=== PATIENT | female | born 1990 | race Caucasian/White ===

== ENCOUNTER 2020-04-29 10:06 | Observation (INO) | payer BC, SELFPAY ==
--- NOTE | 2020-04-29 10:06 | OBADM ---
This patient, Bree Bravo, admitted to the OB room OB Post 116 for observation. Patient/family oriented to hospital policies and general routines including ID bracelet, bed and alarms, visiting hours, pain management, procedures, bathroom and other care routines, personal items, smoking policy, room service/diet, and visiting hours. Patient/Family are encouraged to report perceived risks to care and to ask questions if they do not understand what they are told or what they should do.
[2020-04-29 10:15] VITALS: BMI 42.1
[2020-04-29 10:28] VITALS: BP 120/71; PULSE 82
--- NOTE | 2020-04-29 10:40 | PC.NURSE ---
Called Dr. Hylton with pt status. Informed of pt complaining of left eye pain and headache on left side. Pt states it is increased when lying flat. BP results given. Orders received.
--- NOTE | 2020-04-29 11:55 | PC.NURSE ---
Pt states that her headache is better and is requesting to go home. May D/C home. Dr. Hylton with call prescription to pharmacy.
--- NOTE | 2020-05-03 02:13 | PM.OBTRLD ---
OB - Triage/Final Diagnosis Final Diagnosis (1) Headache: Code(s): R51 - Headache Status: Acute
== END 2020-04-29 12:15 | disposition home or self-care (01) ==
PROVIDERS: Admitting Provider Obstetrics & Gynecology; PCP Family Medicine; Visit Provider Obstetrics & Gynecology
DX: O26.892 Other specified pregnancy related conditions, second trimester (principal); R51 Headache; Z3A.18 18 weeks gestation of pregnancy
CPT/HCPCS: A9270; G0378; G0379

== ENCOUNTER 2020-05-27 12:00 | Observation (INO) | payer BC, SELFPAY ==
--- NOTE | ~2020-05-27 | US_ITS ---
EXAMINATION: US renal BI DATE: 05/27/2020 15:57 INDICATION: Right-sided abdominal pain TECHNIQUE: Multiple grayscale and Doppler ultrasound images of the kidneys were obtained. COMPARISON: None. FINDINGS: The right kidney measures 14.3 x 4.8 x 5.9 cm. The left kidney measures 12.9 x 5.6 x 6.0 cm . The kidneys demonstrate normal parenchymal echogenicity. There is no hydronephrosis. The bladder is normal. IMPRESSION: 1. Normal kidneys without hydronephrosis. Reviewed, dictated and finalized at location A.
[2020-05-27 12:00] VITALS: BMI 41.6
[2020-05-27 12:23] VITALS: BP 95/48; PULSE 83
[2020-05-27 12:31] VITALS: BP 110/97; PULSE 79
[2020-05-27 12:46] VITALS: BP 108/67; PULSE 79
[2020-05-27 13:01] VITALS: BP 107/73; PULSE 77
[2020-05-27 13:16] VITALS: BP 111/68; PULSE 73
[2020-05-27] MEDS: DEXTROSE 5%/0.45% SOD CHL 1,000 ML 500 ML (13:40)
[2020-05-27] MEDS: METOCLOPRAMIDE HCL INJ 10 MG/2 ML VIAL 5 MG IV PUSH (13:42)
[2020-05-27 13:46] LABS: Basophils Percent Auto 0.2 % (0.2-1.2); Eosinophils Absolute Auto 0.1 K/mm3 (0-0.3); Eosinophils Percent Auto 0.9 % (0-4.4); Hematocrit 40.8 % (37.0-47.0); Hemoglobin 13.6 g/dL (12.0-15.0); Immature Granulocyte Absolute 0.09 K/mm3 (0.00-0.031); Immature Granulocyte Percent A 0.7 % (0-0.5); Lymphocytes Absolute Auto 2.01 K/mm3 (0.9-3.2); Lymphocytes Percent Auto 14.7 % (18.3-44.2); Mean Corpuscular HGB Conc 33.3 g/dl (32-36); Mean Corpuscular Hemoglobin 29.4 pg (26-34); Mean Corpuscular Volume 88.1 fl (80-100); Mean Platelet Volume 10.5 fl (7.4-10.4); Monocytes Absolute Auto 0.9 K/mm3 (0.1-0.6); Monocytes Percent Auto 6.7 % (2.6-8.5); Neutrophils Absolute Auto 10.5 K/mm3 (1.3-6.7); Neutrophils Percent Auto 76.8 % (45.5-73.1); Platelet Count Result 252 k/mm3 (150-375); Red Blood Count 4.63 M/mm3 (4.2-5.4); Red Cell Distribution Width 13.9 % (11.5-14.5); White Blood Count 13.7 K/mm3 (4.5-10.0)
[2020-05-27 13:49] LABS: Add Urine Microscopic? YES; Appearance Urine Clear (Clear); Bacteria Urine 1+ /hpf; Bilirubin Urine Negative (Negative); Blood Urine Negative (Negative); Color Urine Yellow (Yellow); Glucose Urine UA Negative (Negative); Ketones Urine Trace mg/dL (Negative); Leukocyte Esterase Ur Trace LEU/UL (Negative); Nitrate Urine Negative (Negative); Protein Urine Negative (Negative); RBC Urine 0-2 /hpf (0-2); Specific Grav Ur 1.012 (1.001-1.035); Squamous Epithelial Cell Urine Few /hpf (Few); Transitional Epi Cells Urine Rare /hpf (None Seen); Urobilinogen Urine Negative mg/dL (<2.0)
[2020-05-27 13:58] LABS: Alanine Aminotransferase 11 U/L (4-35); Albumin Level 3.9 g/dL (3.5-5.1); Alkaline Phosphatase 92 U/L (38-126); Anion Gap 7 mmol/L (8-16); Aspartate Amino Transferase 17 U/L (14-36); Bilirubin,Total 0.3 mg/dL (0.2-1.3); Blood Urea Nitrogen 5 mg/dL (7-17); Calcium 9.4 mg/dL (8.4-10.2); Carbon Dioxide 22 mmol/L (22-30); Chloride 109 mmol/L (98-107); Estimated Glomerular Filt Rate > 60; Glucose 74 mg/dL (65-105); Potassium 3.7 mmol/L (3.4-5.0); Sodium 138 mmol/L (137-145)
[2020-05-27] MEDS: fentaNYL CITRATE INJ (*CRX) 100 MCG/2 ML VIAL 50 MCG IV PUSH (14:44)
--- NOTE | 2020-05-27 15:02 | PC.NURSE ---
1445--US at bedside
--- NOTE | 2020-05-27 16:22 | P.HP_ITS ---
Obstetrics - Admit Note Admission Note: IUP at 22 weeks. Had vomiting today, then some sharp, right-sided flank pain. No fevers. No urinary symptoms. History of kidney stones in the past. Good movement. No vaginal bleeding. Feels a little better now after 1 liter of IV fluids. AVSS ABD soft, nontender, gravid. FHR noted. EXT nontender BACK: No CVA tenderness WBC 13.7. CMP unremarkable. UA negative. Ultrasound: no hydronephrosis, kidneys normal bilaterally. A: IUP at 22 weeks. Likely musculoskeletal pain after vomiting. P: Home to apply heat, try [place] 5/325 1 po q 4 hours prn pain, and cover empirically with Keflex 500 mg po q 8 hours x 5 days. F/u as scheduled.
--- NOTE | 2020-05-27 16:53 | PC.NURSE ---
1603--Dr. Hylton at bedside to discuss plan of care. DC orders given
--- NOTE | 2020-06-19 00:03 | P.PNOB_ITS ---
OB - Triage/Final Diagnosis Evaluation Laboratory results: Laboratory Tests 05/27/20 05/27/20 05/27/20 13:37 13:37 13:37 WBC 13.7 H RBC 4.63 Hgb 13.6 Hct 40.8 MCV 88.1 MCH 29.4 MCHC 33.3 RDW 13.9 Plt Count 252 MPV 10.5 H Immature Gran % (Auto) 0.7 H Neut % (Auto) 76.8 H Lymph % (Auto) 14.7 L [place] % (Auto) 6.7 Eos % (Auto) 0.9 Baso % (Auto) 0.2 Lymph # (Auto) 2.01 [place] # (Auto) 0.9 H Eos # (Auto) 0.1 Baso # (Auto) 0.0 Abs Immat Gran (auto) 0.09 H Absolute Neuts (auto) 10.5 H Absolute Nucleated RBC 0.0 Nucleated RBC % 0.0 Sodium 138 Potassium 3.7 Chloride 109 H Carbon Dioxide 22 Anion Gap 7 L BUN 5 L Creatinine 0.50 L Estim Creat Clear Calc Not Reportable Estimated GFR > 60 Glucose 74 Calcium 9.4 Total Bilirubin 0.3 AST 17 ALT 11 Alkaline Phosphatase 92 Total Protein 7.0 Albumin 3.9 Urine Color Yellow Urine Appearance Clear Urine pH 6.0 Ur Specific [place] 1.012 Urine Protein Negative Urine Glucose (UA) Negative Urine Ketones Trace Ur Blood (Man) Negative Urine Nitrate Negative Urine Bilirubin Negative Urine Urobilinogen Negative Leukocyte Esterase Rfl Trace H Urine RBC 0-2 Urine WBC 4-6 H Ur Squamous Epith Cells Few Ur Transition Epith Cell Rare Urine Bacteria 1+ H Final Diagnosis (1) Musculoskeletal pain: Code(s): M79.18 - Myalgia, other site Status: Acute
== END 2020-05-27 16:27 | disposition home or self-care (01) ==
PROVIDERS: Admitting Provider Obstetrics & Gynecology; PCP Family Medicine; Visit Provider Obstetrics & Gynecology
DX: O26.892 Other specified pregnancy related conditions, second trimester (principal); R10.9 Unspecified abdominal pain; O21.8 Other vomiting complicating pregnancy; Z3A.22 22 weeks gestation of pregnancy
CPT/HCPCS: 36415; 76775; 80053; 81001; 85025; 87086; 87088; 96374; 96375; G0378; G0379; J2765; J3010

== ENCOUNTER 2020-08-24 00:41 | Observation (INO) | payer BC, SELFPAY ==
[2020-08-24] VITALS (8 sets, daily range): BP systolic 102–123; BP diastolic 59–71; PULSE 73–96; TEMP 36.3–36.8; BMI 41.3
--- NOTE | 2020-08-24 00:50 | OBADM ---
This patient, Bree Bravo, admitted to the OB room Labor/Delivery/Recovery 105 for observation. Patient/family oriented to hospital policies and general routines including ID bracelet, bed and alarms, visiting hours, pain management, procedures, bathroom and other care routines, personal items, smoking policy, room service/diet, and visiting hours. Patient/Family are encouraged to report perceived risks to care and to ask questions if they do not understand what they are told or what they should do.
--- NOTE | 2020-08-24 01:00 | PC.NURSE ---
Pt arrives holding forehead and bending over. PT states she was watching TV this evening approx 2-3 hours ago when she developed severe pain in low back and pressure in pelvic area. She then developed a severe headache which she rates as 6. Pt is holding forehead on arrival. Pt is alert oriented, speech clear. When asked pt states she has never had headache like the one she is having currently. States she had sinus surgery 2 years ago for same type of headaches.
[2020-08-24 01:33] LABS: Add Urine Microscopic? YES; Appearance Urine Clear (Clear); Bacteria Urine Trace /hpf; Bilirubin Urine Negative (Negative); Blood Urine Negative (Negative); Color Urine Straw (Yellow); Glucose Urine UA Negative (Negative); Ketones Urine Negative (Negative); Leukocyte Esterase Ur Trace LEU/UL (NEGATIVE); Mucus Urine Rare /lpf; Nitrate Urine Negative (Negative); Protein Urine Negative (Negative); RBC Urine 0-2 /hpf (0-2); Squamous Epithelial Cell Urine Occasional /hpf (Few); Urobilinogen Urine Negative mg/dL (<2.0); WBC Urine 0-3 /hpf (0-3)
--- NOTE | 2020-08-24 01:45 | PC.NURSE ---
Dr. Jose Ortiz notified of pt admission and assessment. Order for MRI of brain Neurology consult, covid screen and drug screen. Pt denies any covid symptoms except headache. Pt states she feel covid screen is good idea.
[2020-08-24] MEDS: HYDROcodone/acetaminophen (*CRX) 10-325 MG TABLET 1 TAB PO (02:19)
[2020-08-24 02:54] LABS: Amphetamine Screen Urine Negative (Negative); Barbiturate Screen Urine Negative (Negative); Benzodiazepines Screen Urine Negative (Negative); Cannabinoid Screen Urine Negative (Negative); Cocaine Screen Urine Negative (Negative); Methadone Screen Urine Negative (Negative); Opiate Screen Urine Negative (Negative); Phencyclidine Screen Urine Negative (Negative)
--- NOTE | 2020-08-24 04:30 | PC.NURSE ---
0155 In review of pt previous record. Pt noted to have previous RX for pain medication over past 6 months. Pt states some for back pain but also may have been for headache. Pt states she may have had headache past 2 years but none like the one she is having currently; Pt states she may have stress headache. Advised pt MD would like to do MRI and neurology consult. Pt states she will leave against medical advise and she does not want to stay here. Pt states she should not have come. Pt to have Covid screen per MD order.
--- NOTE | 2020-08-24 04:42 | PC.NURSE ---
Addendum entered by Arthur Aguilar RN 08/24/20 05:54: NOTE SHOULD BE 0145 Original Note: Dr. Jose Ortiz notified of pt admission and assessment. Order for MRI of brain Neurology consult, covid screen and drug screen. Pt denies any covid symptoms except headache. Pt states she feel covid screen is good idea.
--- NOTE | 2020-08-24 05:52 | PC.NURSE ---
PT Sleeping. Left undisturbed.
--- NOTE | 2020-08-24 06:27 | PC.NURSE ---
Dr. Jose Ortiz here. Advised of pt desire to leave and that pt does not want MRI or neuro consult. He would like pt to see Dr. Hylton. Pt advised and agreeable.
--- NOTE | 2020-08-24 09:02 | P.HP_ITS ---
Obstetrics - Admit Note Admission Note: 30 y/o at 34 weeks here with a headache and low back pain. Some pelvic pressure. No bleeding. No leakage of fluid. Headache has resolved with a dose of [place]. No visual change. No swelling. AVSS NST reactive TOCO: no contractions BACK: No CVA tenderness ABD soft, nontender, gravid, vertex EXT nontender Cervix closed NEURO: DTR 2/4, symmetric. CN II-XII intact grossly. A: IUP at 34 weeks with headache, improving. Low back pain. P: Home with T#3 for headache. Heat to back. F/U as scheduled.
[2020-08-24 16:54] LABS: SARS-CoV-2 RNA PCR Negative
== END 2020-08-24 09:06 | disposition home or self-care (01) ==
PROVIDERS: Admitting Provider Obstetrics & Gynecology; PCP Family Medicine; Visit Provider Obstetrics & Gynecology
DX: O99.891 Other specified diseases and conditions complicating pregnancy (principal); R51.9 Headache, unspecified; M54.9 Dorsalgia, unspecified; Z3A.34 34 weeks gestation of pregnancy; Z20.828 Contact with and (suspected) exposure to other viral communicable diseases
CPT/HCPCS: 80307; 81001; 87086; 87635; A9270; C9803; G0378; G0379; U0003

== ENCOUNTER 2020-09-22 04:57 | Inpatient (IN) | payer BC, SELFPAY ==
[2020-09-22] VITALS (133 sets, daily range): BP systolic 59–171; BP diastolic 28–136; PULSE 64–190; RESP 16; TEMP 36.2–36.9; O2SAT 86–100; BMI 41.3
--- NOTE | 2020-09-22 05:33 | LDADM ---
This patient, Bree Bravo, was admitted to Labor/Delivery/Recovery 106 on 09/22/20 at 04:57. Plans for labor, pain management and were discussed with patient. Patient/family oriented to hospital policies and general routines including ID bracelet, bed and alarms, visiting hours, pain management, procedures, bathroom and other care routines, personal items, smoking policy, room service/diet and guest tray routines, security routines, and visiting hours. Patient/Family are encouraged to report perceived risks to care and to ask questions if they do not understand what they are told or what they should do. See OBIX for further documentation.
[2020-09-22 05:37] LABS: Basophils Percent Auto 0.2 % (0.2-1.2); Eosinophils Absolute Auto 0.1 K/mm3 (0-0.3); Eosinophils Percent Auto 0.7 % (0-4.4); Hematocrit 39.3 % (37.0-47.0); Hemoglobin 12.8 g/dL (12.0-15.0); Immature Granulocyte Absolute 0.08 K/mm3 (0.00-0.031); Immature Granulocyte Percent A 0.6 % (0-0.5); Lymphocytes Absolute Auto 2.04 K/mm3 (0.9-3.2); Mean Corpuscular HGB Conc 32.6 g/dl (32-36); Mean Corpuscular Hemoglobin 27.9 pg (26-34); Mean Corpuscular Volume 85.8 fl (80-100); Mean Platelet Volume 10.8 fl (7.4-10.4); Monocytes Percent Auto 8.1 % (2.6-8.5); Neutrophils Absolute Auto 9.5 K/mm3 (1.3-6.7); Neutrophils Percent Auto 74.4 % (45.5-73.1); Platelet Count Result 236 k/mm3 (150-375); Red Blood Count 4.58 M/mm3 (4.2-5.4); Red Cell Distribution Width 14.2 % (11.5-14.5); White Blood Count 12.8 K/mm3 (4.5-10.0)
[2020-09-22] MEDS: OXYTOCIN 30 UNITS/NS 500 ML 30 UNITS/500 ML BAG IV CONT (05:47)
[2020-09-22] MEDS: LACTATED RINGERS 1,000 ML 125 ML IV CONT ×2 (05:48→08:21)
--- NOTE | 2020-09-22 06:46 | WPDANESEPP ---
Anes - Eval Pre Procedure Procedure: labor epidural Date/Time: 09/22/20 06:46 Surgeon: samantha Preop Diagnosis: pain during labor Pre Op Diagnosis: Induction of Labor Patient Data Age: 30 Gender: F Height: Weight: Last Vital Signs Pulse 89 09/22/20 06:16 BP 132/72 09/22/20 06:16 Allergies Allergy/AdvReac Type Severity Reaction Status Date / Time ondansetron [From Zofran] Allergy Unknown Shakiness Verified 08/26/20 13:23 Home Medications Medication Instructions Recorded Confirmed Type PNV no.[id number] acid 1 tablet PO DAILY 08/24/20 09/22/20 History acetaminophen-codeine 1 - 2 tablet PO Q6H PRN #30 tablet 08/24/20 09/22/20 Rx Laboratory Tests 09/22/20 09/22/20 05:28 05:28 WBC 12.8 K/mm3 H K/mm3 (4.5-10.0) RBC 4.58 M/mm3 M/mm3 (4.2-5.4) Hgb 12.8 g/dL g/dL (12.0-15.0) Hct 39.3 % % (37.0-47.0) MCV 85.8 fl fl (80-100) MCH 27.9 pg pg (26-34) MCHC 32.6 g/dl g/dl (32-36) RDW 14.2 % % (11.5-14.5) Plt Count 236 k/mm3 k/mm3 (150-375) MPV 10.8 fl H fl (7.4-10.4) Immature Gran % (Auto) 0.6 % H % (0-0.5) Neut % (Auto) 74.4 % H % (45.5-73.1) Lymph % (Auto) 16.0 % L % (18.3-44.2) [place] % (Auto) 8.1 % % (2.6-8.5) Eos % (Auto) 0.7 % % (0-4.4) Baso % (Auto) 0.2 % % (0.2-1.2) Lymph # (Auto) 2.04 K/mm3 K/mm3 (0.9-3.2) [place] # (Auto) 1.0 K/mm3 H K/mm3 (0.1-0.6) Eos # (Auto) 0.1 K/mm3 K/mm3 (0-0.3) Baso # (Auto) 0.0 K/mm3 K/mm3 (0.0-0.1) Abs Immat Gran (auto) 0.08 K/mm3 H K/mm3 (0.00-0.031) Absolute Neuts (auto) 9.5 K/mm3 H K/mm3 (1.3-6.7) Absolute Nucleated RBC 0.0 K/mm3 K/mm3 (0.0-0.012) Nucleated RBC % 0.0 % % (0.0-0.2) RPR Pending Patient hx anesthesia problems: none Family hx anesthesia problems: none PMFSH Past Medical History Medical History (Updated 06/19/20 @ 00:04 by Charles Hylton MD) Anxiety Asthma Cervical cancer GERD (gastroesophageal reflux disease) Inguinal hernia Kidney stones Miscarriage PCOS (polycystic ovarian syndrome) UTI (urinary tract infection) Surgical History Surgical History (System 03/31/20 @ 13:01 by María Rg) History of cholecystectomy History of inguinal hernia repair History of loop electrical excision procedure (LEEP) History of sinus surgery Hx of dilation and curettage Family History Family History (Updated 08/26/20 @ 13:24 by Jos Hodge RN) Grandparent Diabetes mellitus Cancer Asthma Social History Social History (System 03/31/20 @ 13:01 by María Rg) Smoking status: Never smoker Second hand tobacco smoke exposure: No Alcohol intake: never Substance use: never Spiritual care concerns: No Exam Day of Procedure 09/22/20 06:46
--- NOTE | 2020-09-22 08:45 | WPDOBADMIT ---
Obstetrics - Admit Note Admission Note: record reviewed. Additions to the history and/or subsequent changes in the physical findings follow. 30 y/o at 39 3/7 weeks here for induction of labor. GBS neg. AVSS NST reactive TOCO: contractions every 4-6 min ABD soft, nontender, gravid, vertex EXT nontender Cervix 3/50/-2. AROM with clear fluid. Vertex. A: IUP at term with favorable cervix, desiring induction of labor. P: Oxytocin. Anticipate .
[2020-09-22] MEDS: ePHEDrine sulfate INJ 50 MG/ML AMPUL IV PUSH (09:20)
[2020-09-22] MEDS: PHENYLEPHRINE 1,000 MCG/10 ML SYRINGE 100 MCG IV PUSH (09:20)
[2020-09-22 11:34] LABS: Rapid Plasma Reagin Non-Reactive (NonReactive)
--- NOTE | 2020-09-22 13:27 | PM.OBPNLAB ---
Pain Control Date/time seen: 09/22/20 13:27 Comments: Comfortable with epidural. Pelvic Exam Dilation (cm): 7 Effacement (%): 100 station: -1 Contractions Contraction frequency: 4 Contraction pattern: Regular Status Comments: NST reactive Assessment and Plan Comments: Continue labor.
--- NOTE | 2020-09-22 15:19 | P.PCNOB_ITS ---
OB - Delivery Note Procedure Delivery date: 09/22/20 Procedure: Induction of labor with Induction method: AROM and per pitocin protocol Delivery monitor: external FHT, external uterine and internal uterine Route of delivery: Laceration Description: Perineal - 2nd Degree Delivery repair: vicryl (3-0) Specimen: Yes (cord blood) Quantitative Blood Loss (ml): 145 Anesthesia type: Epidural Disposition: PACU Complications: None Narrative: 30 y/o at 39 3/7 weeks gestation who presented to the hospital for induction of labor. Oxytocin was administered intravenously. Amniotomy was performed with return of clear fluid. She received an epidural for pain control. Her labor progressed and her cervix dilated completely. She pushed with good effort and delivered the 's head to the perineum, followed by the body. The nose and mouth were bulb suctioned. After a delay, the cord was clamped and cut. The infant was handed off the field. Cord blood was collected. The placenta delivered spontaneously and was grossly normal in appearance. The usual 3 vessel cord was noted. A second degree midline perineal laceration was sustained. This was reapproximated using 3 0 Vicryl in the usual layered fashion. A single, figure of eight suture was placed to reapproximate a left sided periurethral laceration. Excellent hemostasis resulted as did excellent reapproximation of the normal anatomy. Needle and instrument counts were correct. The patient was taken to recovery room in stable condition. The infant went to the nursery in stable condition. I was present and scrubbed for the entire delivery. [place] Baby Date of : 09/22/20 Time of : 14:59 Weeks of gestation at delivery: 39 gender: Male Weight (pounds): 7 Weight (ounces): 11 presentation: vertex position: Right Occiput Anterior Placenta delivery description: Spontaneous cord vessel description: 3 Vessels and Delayed Cord Clamping score one minute: 8 score five minutes: 9
[2020-09-22] MEDS: OXYTOCIN 30 UNITS/NS 500 ML 30 UNITS/500 ML BAG 125 UNITS IV CONT (15:27)
--- NOTE | 2020-09-22 17:50 | OBPPTRN ---
1725 Patient transferred to post room #286 via W/C. Support person present. Oriented to unit, room, information board, rooming in, admission packet and security measures. Patient verbalizes understanding.
[2020-09-22] MEDS: DOCUSATE SODIUM 100 MG CAPSULE PO (18:50)
[2020-09-22] MEDS: IBUPROFEN 600 MG TABLET PO (18:50)
[2020-09-22] MEDS: ACETAMINOPHEN 325 MG TABLET 650 MG PO (21:10)
[2020-09-23] VITALS (12 sets, daily range): BP systolic 111–136; BP diastolic 63–94; PULSE 58–84; RESP 12–24; TEMP 36.2–36.6; O2SAT 95–100
[2020-09-23] MEDS: IBUPROFEN 600 MG TABLET PO ×2 (05:04→10:41)
[2020-09-23 05:56] LABS: Hematocrit 36.9 % (37.0-47.0); Hemoglobin 12.2 g/dL (12.0-15.0)
--- NOTE | 2020-09-23 08:05 | PC.NURSE ---
Patient was given the opportunity to view the discharge video Mother & Baby Care, The First Two Weeks and to ask questions. Patient declined viewing the video and has been given the mother/baby guide for home reference.
[2020-09-23] MEDS: ACETAMINOPHEN 325 MG TABLET 650 MG PO (08:07)
--- NOTE | 2020-09-23 08:35 | PC.NURSE ---
0815 Breast feeding note: visited with mother. Baby ready to breast feed. Nurse encouraged mother to get skin to skin for feedings. mother trying a modified cradle position. She allowed nurse to instruct and assist her in cross-cradle position. Reviewed positioning, alignment, use of c-hold, and nose to nipple latch on technique. Baby awake and eager. Several attempts required because mother has a larger nipple,but baby able to latch with apparent deep latch and demonstrated vigorous, rhythmic sucking, maintaining his latch; nurse adjusted his lower lip to more flanged position and taught FOB how to do the same if needed; baby required a little stimulation to more vigorous sucking, but was doing well at the breast. Mother has a hx of PCOS, and reports lower milk production with her first baby. This time, she chooses to breast feed each feeding, and then bottle feed infant, and we'll see what happens . She does not want to pump as last time it was too stressful . Nurse agreed with her plan. Baby taking about 20cc formula at feedings; parents instructed that when they go home, baby can have amount he wants, and that he will gradually increase his formula intake. Parents voiced understanding.
--- NOTE | 2020-09-23 08:44 | WPDANLDPN2 ---
Anes-Prog Note L&D Date/Time: 09/23/20 08:44 Comfortable throughout: labor and delivery Neuraxial method: epidural Epidural/Spinal procedure site: clean & non-tender Neuro status: Neuro function grossly intact. Cardiovascular status: normal Respiratory status: normal Airway patency: baseline Mental status: baseline Post-Op hydration status: normal Vital Signs: Last Vital Signs Temp 36.5 C 09/23/20 07:45 Pulse 80 09/23/20 07:45 Resp 16 09/23/20 07:45 BP 111/63 09/23/20 07:45 Pulse Ox 100 09/23/20 07:45 Pain score (VAS): 0 I/O: Intake & Output 09/22/20 09/23/20 09/23/20 23:59 07:59 15:59 Output Total 85 Balance -85 Post-procedural complaints: none Patient feedback: Patient satisfied with anesthetic care.
--- NOTE | 2020-09-23 11:40 | PC.NURSE ---
Pt to pre-op per bed for tubal ligation.
--- NOTE | 2020-09-23 11:54 | WPDANESEPPF ---
Anes - Initial Pre Proc Eval Procedure: Operation Date: 09/23/20 13:00 Proposed Procedures p Post- Bilateral Tubal Ligation With Fallopina Rings - Charles Hylton MD Date/Time: 09/23/20 11:54 Surgeon: Charles Hylton MD Pre Op Diagnosis: Induction of Labor Patient Data Age: 30 Gender: F Height: 1.75 m Weight: 127 kg Last Vital Signs Temp 36.5 C 09/23/20 07:45 Pulse 80 09/23/20 07:45 Resp 16 09/23/20 07:45 BP 111/63 09/23/20 07:45 Pulse Ox 100 09/23/20 07:45 Allergies Allergy/AdvReac Type Severity Reaction Status Date / Time ondansetron [From Zofran] Allergy Unknown Shakiness Verified 08/26/20 13:23 Home Medications Medication Instructions Recorded Confirmed Type PNV no.06-zfxj-hjcjw acid 1 tablet PO DAILY 08/24/20 09/22/20 History acetaminophen-codeine 1 - 2 tablet PO Q6H PRN #30 tablet 08/24/20 09/22/20 Rx Laboratory Tests 09/23/20 05:13 Hgb 12.2 g/dL g/dL (12.0-15.0) Hct 36.9 % L % (37.0-47.0) Patient hx anesthesia problems: none Family hx anesthesia problems: none PMFSH Past Medical History Medical History (Updated 06/19/20 @ 00:04 by Charles Hylton MD) Anxiety Asthma Cervical cancer GERD (gastroesophageal reflux disease) Inguinal hernia Kidney stones Miscarriage PCOS (polycystic ovarian syndrome) UTI (urinary tract infection) Surgical History Surgical History (System 03/31/20 @ 13:01 by María Rg) History of cholecystectomy History of inguinal hernia repair History of loop electrical excision procedure (LEEP) History of sinus surgery Hx of dilation and curettage Family History Family History (Updated 08/26/20 @ 13:24 by Jos Hodge RN) Grandparent Diabetes mellitus Cancer Asthma Social History Social History (System 03/31/20 @ 13:01 by María Rg) Smoking status: Never smoker Second hand tobacco smoke exposure: No Alcohol intake: never Substance use: never Spiritual care concerns: No Anes - Eval Final PreProcedure Day of Procedure 09/23/20 11:54 Patient weight: morbidly obese Heart: regular rate and rhythm Lungs: clear to auscultation and normal air movement Airway: Mallampati scale class II Neurological: alert and oriented Last oral intake: >/= 8 hours ASA classification: III Emergent: no Anesthetic plan: proceed Anesthesia type and monitoring: regional epidural Informed Consent: The patient's anesthetic plan and its attendant risks and benefits were discussed with the patient/family/POA. Questions were solicited and answers provided to the satisfaction of the patient/family/POA.
[2020-09-23] MEDS: LACTATED RINGERS 1,000 ML 30 ML IV CONT ×2 (11:59→14:34)
--- NOTE | 2020-09-23 12:25 | PM.OBPNVD ---
OB - PN: Subj Subjective Date/time seen: Pain OK. Still would like tubal ligation. Narrative: Pain OK. OB - PN: Obj Data Labs CBC & Chem 7: 09/23/20 05:13 Labs: Laboratory Results - last 24 hr 09/23/20 05:13 Hgb 12.2 Hct 36.9 L OB - PN A/P Plan Comments: A: PPD#1, doing well. Still would like bilateral tubal ligation. P: She understands there are temporary methods of contraception available to her. She understands that there are nonsurgical options as well as surgical options. She understands that tubal ligation will render her permanently sterile. She understands that there is a failure rate associated with tubal ligation, as well as an inherent ectopic gestation risk. Furthermore, she understands risks of surgery to include risks of anesthesia, risks of pain, infection, bleeding, blood products, thromboembolic phenomena and damage to adjacent structures such as bowel, bladder, ureters, blood vessels and nerves. She understands all these risks and elects to proceed with surgery. She has received the ACOG pamphlet on surgical sterilization. Exam Psych: Other: AVSS ABD soft, nontender, fundus firm EXT nontender
--- NOTE | 2020-09-23 12:28 | WPDHPUPDATE1 ---
History and Physical Update Update Date/Time: 09/23/20 12:28 History and Physical has been reviewed, including an updated exam of the patient. There are NO changes in the patient's condition. Risks, benefits, and alternatives have been discussed and questions answered. Patient agrees to proceed with procedure.
--- NOTE | 2020-09-23 13:09 | PM.IMHP ---
H&P: HPI History of Present Illness Date/Time: 09/23/20 13:09 Chief Complaint: Tubal ligation Narrative: 30 y/o who had a vaginal delivery of a boy yesterday. She desires permanent contraception with tubal ligation. Review of Systems Review of Systems: All systems reviewed & are unremarkable except as noted in HPI and below PMFSH Past Medical History Medical History Anxiety Asthma Cervical dysplasia GERD (gastroesophageal reflux disease) Inguinal hernia Kidney stones Miscarriage PCOS (polycystic ovarian syndrome) UTI (urinary tract infection) Surgical History Surgical History History of cholecystectomy History of inguinal hernia repair History of loop electrical excision procedure (LEEP) History of sinus surgery Hx of dilation and curettage Family History Family History Grandparent Diabetes mellitus Cancer Asthma Social History Social History Smoking status: Never smoker Second hand tobacco smoke exposure: No Alcohol intake: never Substance use: never Spiritual care concerns: No Meds Home Medications and Allergies Home Medications Medication Instructions Recorded Confirmed Type PNV no.[id number]-[id number] acid 1 tablet PO DAILY 08/24/20 09/22/20 History acetaminophen-codeine 1 - 2 tablet PO Q6H PRN #30 tablet 08/24/20 09/22/20 Rx Allergies Allergy/AdvReac Type Severity Reaction Status Date / Time ondansetron [From Zofran] Allergy Unknown Shakiness Verified 08/26/20 13:23 Vital Signs Vital Signs - 24 hr 09/22/20 13:12 09/22/20 13:16 09/22/20 13:17 Temperature Pulse Rate 88 Respiratory Rate Blood Pressure 122/62 Pulse Oximetry 100 90 09/22/20 13:19 09/22/20 13:20 09/22/20 13:24 Temperature Pulse Rate Respiratory Rate Blood Pressure Pulse Oximetry 96 100 100 09/22/20 13:29 09/22/20 13:30 09/22/20 13:31 Temperature 36.4 C Pulse Rate 74 Respiratory Rate Blood Pressure 110/57 L Pulse Oximetry 100 09/22/20 13:34 09/22/20 13:39 09/22/20 13:44 Temperature Pulse Rate Respiratory Rate Blood Pressure Pulse Oximetry 100 100 100 09/22/20 13:46 09/22/20 13:49 09/22/20 13:54 Temperature Pulse Rate 70 Respiratory Rate Blood Pressure 121/60 Pulse Oximetry 100 100 09/22/20 13:59 09/22/20 14:01 09/22/20 14:04 Temperature Pulse Rate 92 Respiratory Rate Blood Pressure 96/85 L Pulse Oximetry 100 100 09/22/20 14:09 09/22/20 14:14 09/22/20 14:17 Temperature Pulse Rate 90 Respiratory Rate Blood Pressure 105/45 L Pulse Oximetry 100 100 09/22/20 14:19 09/22/20 14:24 09/22/20 14:29 Temperature Pulse Rate Respiratory Rate Blood Pressure Pulse Oximetry 100 100 100 09/22/20 14:31 09/22/20 14:34 09/22/20 14:39 Temperature Pulse Rate 75 Respiratory Rate Blood Pressure 71/49 L Pulse Oximetry 100 100 09/22/20 14:44 09/22/20 14:45 09/22/20 14:46 Temperature Pulse Rate 78 Respiratory Rate Blood Pressure 106/55 L Pulse Oximetry 100 100 09/22/20 14:50 09/22/20 14:55 09/22/20 15:01 Temperature Pulse Rate 94 Respiratory Rate Blood Pressure 122/48 L Pulse Oximetry 100 100 09/22/20 15:16 09/22/20 15:46 09/22/20 16:01 Temperature Pulse Rate 82 80 76 Respiratory Rate Blood Pressure 90/46 L 112/55 L 114/65 Pulse Oximetry 09/22/20 16:16 09/22/20 16:31 09/22/20 16:46 Temperature Pulse Rate 85 83 80 Respiratory Rate Blood Pressure 128/72 123/78 132/63 Pulse Oximetry 09/22/20 17:01 09/22/20 20:10 09/23/20 07:45 Temperature 36.6 C 36.5 C Pulse Rate 69 80 80 Respiratory Rate 16 16 Blood Pressure 120/64 130/67 111/63 Pulse Oximetry 100 100 09/23/20 11:
--- NOTE | 2020-09-23 13:16 | PM.OBDSVD ---
DS: Admitting Diagnosis Admitting Diagnosis Admitting Diagnosis: IUP at 39 3/7 weeks Favorable cervix Desired sterility DS: Discharge Diagnosis Discharge Diagnosis (1) (normal spontaneous vaginal delivery): Code(s): O80 - Encounter for full-term uncomplicated delivery Status: Acute (2) Unwanted fertility: Code(s): Z30.09 - Encounter for other general counseling and advice on contraception Status: Acute OB - DS: Summary OB Procedures : None OB Procedures Intrapartum: Spontaneous Vag Delivery and Tubal ligation OB Procedures: : None Peripartum Data Procedures: Procedures Operation Date: 09/23/20 13:00 <No data on this case meets the specified criteria> Induction of labor with bilateral tubal ligation DS: Data Data Completed and Pending Labs on day of discharge: Labs from last 24 hours 09/23/20 05:13 Hgb 12.2 Hct 36.9 L Discharge Plan Discharge Attending physician on discharge: Charles Hylton Discharging Clinician: Charles Hylton Patient Disposition: Home, Self-Care Activity: may shower, may drive after 2 weeks and pelvic rest Diet: regular Wound Care Instructions: incision open to air Discharge Instructions: Call or return if temperature above 100.4? F, increased abdominal pain, increased vaginal bleeding or any new problems. Education: Mom and Baby Guide and Preeclampsia Handout Given to: Mother Follow-Up: Call your delivering provider's office for an appointment to be seen in: 6 Weeks Mom and baby should come to the [facility] for the follow-up appointment. Appointment Date/Time: September 24, 2020 at 1:30 pm What to expect at your follow-up visit: Physical Assessment Call [phone] if you are unable to keep your appointment time. BREAST CARE: * Wear a snug supportive bra. * For engorgement discomfort: Breast Feeding: * Apply warm moist washcloths * Express milk as needed to relieve engorgement * Wear loose clothing Bottle Feeding: * May apply ice packs * For sore nipples: * Identify correct latch-on * Apply warm moist washcloths before and after nursing * Air dry nipples after nursing * May apply Lansinoh cream to nipples ABDOMINAL INCISION: (if applicable) * Allow incision to air dry * Do NOT use lotions for powders on your incision * When showering, allow soap and water to run over the incision, but do not wash incision EPISIOTOMY/PERINEAL CARE: * Until bleeding stops, use your gabe bottle after urinating * Change your pad frequently throughout the day * You may take sitz baths several times a day (fill your bathtub with warm water and soak for 20 minutes.) Do NOT bathe in the water * No tub baths until seen by your physician - You may shower ACTIVITY: * Rest as much as possible. * Do not exercise or lift anything heavier than your baby (such as laundry or other children.) * Avoid stairs or driving as much as possible. * Do not put anything into the vagina. No douching, tampons, or sexual activity until seen by physician. NOTIFY PHYSICIAN IF YOU HAVE ANY QUESTIONS OR IF ANY OF THE FOLLOWING SYMPTOMS OCCUR: * If your episiotomy or incision becomes red, swollen, or more painful than what you have experienced in the hospital. * If your vaginal bleeding becomes foul smelling. * If your vaginal bleeding becomes more heavy than a period or if your bleeding changes from pink to bright red. However, you may pass an occasional walnut-sized clot once or twice for the first week . * If you experience a sharp, shooting pain in you calves. * If you discover a hard, reddened area on your breast or if you experience flu-like symptoms. DIET: * Eat regular, well-balanced meals. * Drink plenty of fluids daily. If , drink to thirst. Stand Alone Forms:
[2020-09-23] MEDS: LIDO 1%/EPINEPHRINE 1:100,000 50 ML VIAL 10 ML INFILTRATE (13:53)
--- NOTE | 2020-09-23 14:28 | P.OP_ITS ---
Procedure Note - Detailed Date of procedure: 09/23/20 Pre-op diagnosis: Induction of Labor Desired sterility Post-op diagnosis: same Procedure performed: bilateral tubal ligation via modified [place] technicque Description of procedure: The patient was taken to the operating room where general endotracheal anesthesia was administered. She was prepared and draped in the usual sterile fashion in the dorsal supine position. 10mL of 1% lidocaine with epinephrine was infiltrated along the planned incision site. An infraumbilical skin incision made with a scalpel. It was carried through underlying layer of the fascia. The fascia was incised in the midline. The incision was extended laterally. The peritoneum was identified, tented up and entered sharply and this incision was also extended laterally. The right fallopian tube was grasped with a Murchison clamp. It was followed out to the fimbriated end for identification, then was regrasped in the midportion. A loop of tube was ligated with a free tie of 0 plain gut. The tubal segment was sharply transected and passed off to be sent to pathology. The left fallopian tube was similarly identified ligated and transected. Hemostasis was excellent. The fascial layer was reapproximated using 0 Vicryl in a running fashion. The skin incision was reapproximated using 4 0 Monocryl in running subcuticular fashion. Dermaflex was applied externally. Sponge, lap, needle and instrument counts were correct. The patient was awakened and taken to the recovery room in stable condition. I was present and scrubbed through the entire procedure. Implants: None Anesthesia: GETA Surgeon: Charles Hylton MD Estimated blood loss (mL): 10 Drains: No Packing: No Pathology: yes (Segments of bilateral Fallopian tubes) Complications: None Condition: stable Disposition: PACU Findings: Normal-appearing uterus and tubes.
[2020-09-23] MEDS: fentaNYL CITRATE INJ (*CRX) 100 MCG/2 ML VIAL 25 MCG IV PUSH ×4 (14:47→14:54)
[2020-09-23] MEDS: HYDROmorphone HCL INJ (*CRX) 1 MG/ML SYR 0.25 MG IV PUSH ×8 (14:59→15:35)
[2020-09-23] MEDS: IBUPROFEN 400 MG TABLET 800 MG PO (15:26)
--- NOTE | 2020-09-23 16:00 | PC.NURSE ---
Returned to room 286 from PACU per hospital bed.
--- NOTE | 2020-09-23 16:00 | PC.NURSE ---
Pt returned from PACU per bed. Alert and oriented. Stable condition.
[2020-09-23] MEDS: HYDROcodone/acetaminophen (*CRX) 5-325 MG TABLET 1 TAB PO (16:43)
--- NOTE | 2020-09-24 09:56 | WPDANESPN ---
Anes - Prog Note Post-Op Date/Time: 09/24/20 09:56 Cardiovascular status: normal Respiratory status: normal Airway patency: baseline Mental status: baseline Post-Op hydration status: normal Vital Signs: Last Vital Signs Temp 97.9 F 09/23/20 16:10 Pulse 79 09/23/20 17:00 Resp 20 09/23/20 16:10 BP 129/81 09/23/20 17:00 Pulse Ox 99 09/23/20 17:00 Pain Score (VAS): 09/13 Laboratory Tests 09/23/20 05:13 Post-procedural complaints: none Patient Feedback: Patient satisfied with anesthetic care.
[2020-09-24 14:06] VITALS: BP 114/71; PULSE 75; RESP 20; TEMP 36.4; O2SAT 100
== END 2020-09-23 19:05 | disposition home or self-care (01) | DRG 798 ==
LOC: ANHLDR 16:41 → ANHOB2 17:24
PROVIDERS: Admitting Provider Obstetrics & Gynecology; PCP Family Medicine; Visit Provider Obstetrics & Gynecology
PROC: 0UL70ZZ Occlusion of Bilateral Fallopian Tubes, Open Approach (ICD-10-PCS; CPT 58605; principal; 2020-09-23 13:00)
DX: O99.284 Endocrine, nutritional and metabolic diseases complicating childbirth (principal); Z37.0 Single live birth; E28.2 Polycystic ovarian syndrome; O36.8330 Maternal care for abnormalities of the fetal heart rate or rhythm, third trimester, not applicable or unspecified; Z3A.39 39 weeks gestation of pregnancy; O70.1 Second degree perineal laceration during delivery; O99.62 Diseases of the digestive system complicating childbirth; K21.9 Gastro-esophageal reflux disease without esophagitis; O99.214 Obesity complicating childbirth; E66.01 Morbid (severe) obesity due to excess calories; Z30.2 Encounter for sterilization; O99.344 Other mental disorders complicating childbirth; F41.9 Anxiety disorder, unspecified; O99.52 Diseases of the respiratory system complicating childbirth; J45.909 Unspecified asthma, uncomplicated
CPT/HCPCS: 36415; 85014; 85018; 85025; 86592; 86850; 86900; 86901; 88302; A9270; J0131; J0330; J1100; J1170; J2250; J2370; J2405; J2590; J2704; J2710; J2795; J3010; J7120

== ENCOUNTER 2022-06-24 09:18 | Outpatient (CLI) | payer BC, SELFPAY ==
[2022-06-24 10:18] LABS: Rapid Plasma Reagin Non-Reactive (NonReactive)
[2022-06-24 10:29] LABS: HIV 1/2 Ab P24 Ag Result Negative (Negative)
== END 2022-06-24 09:19 | disposition home or self-care (01) ==
PROVIDERS: PCP Family Medicine; Visit Provider Nurse Practitioner Family
DX: Z72.51 High risk heterosexual behavior (principal)
CPT/HCPCS: 36415; 86592; 86703; 87491; 87591; 87661; G0432

== ENCOUNTER 2022-11-26 14:55 | Emergency (ER) | payer MEDICAID, SELFPAY ==
[2022-11-26] VITALS (27 sets, daily range): BP systolic 65–111; BP diastolic 38–80; PULSE 65–88; RESP 9–33; TEMP 36.9; O2SAT 98–100
--- NOTE | ~2022-11-26 | CT_ITS ---
EXAMINATION: CT abdomen pelvis wo con DATE: 11/26/2022 17:39 INDICATION: Abdominal cramping. Leukocytosis. TECHNIQUE: Computed tomography (CT) of the abdomen and pelvis was performed without intravenous contr ast. Automated exposure control and iterative reconstruction technique were employed. Exam dose: 158 2.01 mGy-cm total exam DLP. COMPARISON: 07/01/2019 CT abdomen pelvis FINDINGS: Mild tree-in-bud infiltrate in the right lower lobe which may be due to infectious or infla mmatory process. Mild right lower lobe pneumonia is not excluded. The lung bases are otherwise clear. Normal heart size. No pericardial or pleural effusion. Status post cholecystectomy. No bile duct or pancreatic duct dilatation. The liver, spleen, pancreas, adrenal glands and kidneys are unremarkable. No urinary tract calculus o r hydroureteronephrosis. Normal caliber of the abdominal aorta. No intraperitoneal or retroperitoneal or pelvic mass lesion or adenopathy or ascites. Normal appendix. There are is fluid throughout much of the small bowel and scattered small bowel as w ell as colon air-fluid levels which may be due to mild adynamic ileus or enterocolitis. No bowel obst ruction, bowel wall thickening, pneumatosis or intraperitoneal free air. Normal appendix. The uterus, adnexal areas and urinary bladder are unremarkable. Status post right inguinal hernia repair. No suspicious osteolytic or osteoblastic lesions are noted. IMPRESSION: Mild tree-in-bud infiltrate in right lower lobe, which may be infectious or inflammatory ; mild right lower lobe pneumonia may be present. Air-fluid levels of small and large bowel without abnormal dilatation or obstruction; consider mild a dynamic ileus or enterocolitis Normal appendix Reviewed, dictated and finalized at [facility]. Reviewed, dictated and finalized at [facility]. IMPRESSION: Mild tree-in-bud infiltrate in right lower lobe, which may be infe ctious or inflammatory; mild right lower lobe pneumonia may be present. Air-fluid levels of small and large bowel without abnormal dilatation or obstru ction; consider mild adynamic ileus or enterocolitis Normal appendix
--- NOTE | ~2022-11-26 | CT_ITS ---
EXAMINATION: CT brain wo con DATE: 11/26/2022 17:00 INDICATION: Syncope TECHNIQUE: Computed tomography (CT) of the head was performed without intravenous contrast. The mA wa s adjusted according to patient size. Iterative reconstruction technique was employed. Exam dose: 60 5.33 mGy-cm total exam DLP. COMPARISON: 02/21/2010 CT brain FINDINGS: No intracranial mass lesion or hemorrhage or cerebrovascular accident. No midline shift or mass effect effect. Normal ventricular size. Normal martinez-white matter differentiation. No subdural or epidural hematoma. The mastoid air cells and included paranasal sinuses are unremarkable except for mild mucoperiosteal thickening of the left frontoethmoid area.. No fracture or bone destruction of the cranial vault. IMPRESSION: No intracranial abnormality Reviewed, dictated and finalized at [facility] Reviewed, dictated and finalized at [facility]. IMPRESSION: No intracranial abnormality
--- NOTE | 2022-11-26 16:01 | ED.DIZZY ---
HPI - Dizziness General Chief Complaint: Dizziness Stated Complaint: dizziness Time Seen by Provider: 11/26/22 16:01 Source: patient Related Data Allergies Allergy/AdvReac Type Severity Reaction Status Date / Time ondansetron [From Zofran] Allergy Unknown Shakiness Verified 11/26/22 14:55 [facility] Past Medical History Medical History Adult BMI 37.0-37.9 kg/sq m Anxiety Asthma BMI 38.0-38.9,adult Body mass index (BMI) of 40.1 to 44.9 in adult Cervical dysplasia GERD (gastroesophageal reflux disease) Inguinal hernia Kidney stones Miscarriage PCOS (polycystic ovarian syndrome) tubal ligation planned UTI (urinary tract infection) Surgical History Surgical History History of cholecystectomy History of inguinal hernia repair History of loop electrical excision procedure (LEEP) History of sinus surgery Hx of dilation and curettage Family History Family History Grandparent Diabetes mellitus Cancer Asthma Father No problems noted. Mother No problems noted. Sibling No problems noted. Social History Social History Smoking status: Never smoker Second hand tobacco smoke exposure: No Alcohol intake: never Substance use: never Substance use type: does not use Living arrangements: with family Occupation/Education: occupation Additional occupation/education comments: stay at home mom Gender identity (if verbalized by the patient): Female Spiritual care concerns: No Course Vital Signs Vital signs: Vital Signs Temperature 36.9 C 11/26/22 15:12 Pulse Rate 86 11/26/22 15:12 Respiratory Rate 16 11/26/22 15:12 Blood Pressure 102/64 11/26/22 15:12 Pulse Oximetry 100 11/26/22 15:12 Temperature 36.9 C 11/26/22 15:12 Pulse Rate 75 11/26/22 16:32 Respiratory Rate 11 L 11/26/22 16:32 Blood Pressure 110/67 11/26/22 16:32 Pulse Oximetry 100 11/26/22 16:32 MDM - Dizziness Lab Data 11/26/22 16:18 11/26/22 16:18 Labs: Lab Results 11/26/22 11/26/22 Range/Units 16:18 16:18 WBC 17.3 H (4.5-10.0) K/mm3 RBC 5.46 H (4.2-5.4) M/mm3 Hgb 15.3 H D (12.0-15.0) g/dL Hct 47.6 H (37.0-47.0) % MCV 87.2 (80-100) fl MCH 28.0 (26-34) pg MCHC 32.1 (32-36) g/dl RDW 13.3 (11.5-14.5) % Plt Count 295 (150-375) k/mm3 MPV 9.5 (7.4-10.4) fl Immature Gran % (Auto) 0.3 (0-0.5) % Neut % (Auto) 94.1 H (45.5-73.1) % Lymph % (Auto) 2.4 L (18.3-44.2) % [place] % (Auto) 2.8 (2.6-8.5) % Eos % (Auto) 0.2 (0-4.4) % Baso % (Auto) 0.2 (0.2-1.2) % Lymph # (Auto) 0.41 L (0.9-3.2) K/mm3 [place] # (Auto) 0.5 (0.1-0.6) K/mm3 Eos # (Auto) 0.0 (0-0.3) K/mm3 Baso # (Auto) 0.0 (0.0-0.1) K/mm3 Abs Immat Gran (auto) 0.06 H (0.00-0.031) K/mm3 Absolute Neuts (auto) 16.3 H (1.3-6.7) K/mm3 Absolute Nucleated RBC 0.0 (0.0-0.012) K/mm3 Nucleated RBC % 0.0 (0.0-0.2) % Sodium 138 (137-145) mmol/L Potassium 4.5 (3.4-5.0) mmol/L Chloride 109 H (98-107) mmol/L Carbon Dioxide 20 L (22-30) mmol/L Anion Gap 9 (8-16) mmol/L BUN 17 D (7-17) mg/dL Creatinine 0.80 (0.7-1.0) mg/dL Estim Creat Clear Calc 118 ml/min Estimated GFR > 60 (59 - ) Glucose 138 H (65-110) mg/dL Calcium 8.9 (8.4-10.2) mg/dL Total Bilirubin 1.2 (0.2-1.3) mg/dL AST 28 (14-36) U/L ALT 22 (6-35) U/L Alkaline Phosphatase 82 (38-126) U/L Total Protein 8.0 (6.3-8.2) g/dL Albumin 4.6 (3.5-5.1) g/dL Lipase 111 (23-300) U/L Discharge Plan Discharge Prescriptions: No Action albuterol sulfate 90 mcg/actuation HFA aerosol inhaler 2 inh inhalation Q4H PRN (Reason: shortness of breath or wheezing) Qty: 8.5 0RF
[2022-11-26] MEDS: SODIUM CHLORIDE 0.9% IV 2,000 ML 999 ML IV CONT (16:19)
[2022-11-26 16:23] LABS: Basophils Percent Auto 0.2 % (0.2-1.2); Eosinophils Percent Auto 0.2 % (0-4.4); Hematocrit 47.6 % (37.0-47.0); Hemoglobin 15.3 g/dL (12.0-15.0); Immature Granulocyte Absolute 0.06 K/mm3 (0.00-0.031); Immature Granulocyte Percent A 0.3 % (0-0.5); Lymphocytes Absolute Auto 0.41 K/mm3 (0.9-3.2); Lymphocytes Percent Auto 2.4 % (18.3-44.2); Mean Corpuscular HGB Conc 32.1 g/dl (32-36); Mean Corpuscular Volume 87.2 fl (80-100); Mean Platelet Volume 9.5 fl (7.4-10.4); Monocytes Absolute Auto 0.5 K/mm3 (0.1-0.6); Monocytes Percent Auto 2.8 % (2.6-8.5); Neutrophils Absolute Auto 16.3 K/mm3 (1.3-6.7); Neutrophils Percent Auto 94.1 % (45.5-73.1); Platelet Count Result 295 k/mm3 (150-375); Red Blood Count 5.46 M/mm3 (4.2-5.4); Red Cell Distribution Width 13.3 % (11.5-14.5); White Blood Count 17.3 K/mm3 (4.5-10.0)
[2022-11-26 16:33] LABS: Alanine Aminotransferase 22 U/L (6-35); Albumin Level 4.6 g/dL (3.5-5.1); Alkaline Phosphatase 82 U/L (38-126); Anion Gap 9 mmol/L (8-16); Aspartate Amino Transferase 28 U/L (14-36); Bilirubin,Total 1.2 mg/dL (0.2-1.3); Blood Urea Nitrogen 17 mg/dL (7-17); Calcium 8.9 mg/dL (8.4-10.2); Carbon Dioxide 20 mmol/L (22-30); Chloride 109 mmol/L (98-107); Estimated CRCL calculation 118 ml/min; Estimated Glomerular Filt Rate > 60; Glucose 138 mg/dL (65-110); Lipase 111 U/L (23-300); Potassium 4.5 mmol/L (3.4-5.0); Sodium 138 mmol/L (137-145)
--- NOTE | 2022-11-26 17:26 | ED.NAVMDI ---
HPI - Nausea/Vomiting/Diarrhea General Chief complaint: Dizziness Stated complaint: dizziness Time Seen by Provider: 11/26/22 16:01 Source: patient Mode of arrival: ambulatory Limitations: no limitations History of Present Illness HPI Narrative: Patient is 52 years old white female came to the emergency room by private car with sudden onset of nausea, vomiting and diarrhea that started 7 AM today associated with intermittent abdominal cramps. With chills. 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 Patient reports vomiting almost every half an hour, diarrhea almost every half an hour. Patient passed out while sitting on the toilet vomiting and diarrhea. Hit her head on the ground. Feeling weak all over. Related Data Allergies Allergy/AdvReac Type Severity Reaction Status Date / Time ondansetron [From Zofran] Allergy Unknown Shakiness Verified 11/26/22 14:55 Review of Systems Review of Systems: All systems reviewed & are unremarkable except as noted in HPI and below PMFSH Past Medical History Medical History Adult BMI 37.0-37.9 kg/sq m Anxiety Asthma BMI 38.0-38.9,adult Body mass index (BMI) of 40.1 to 44.9 in adult Cervical dysplasia GERD (gastroesophageal reflux disease) Inguinal hernia Kidney stones Miscarriage PCOS (polycystic ovarian syndrome) tubal ligation planned UTI (urinary tract infection) Surgical History Surgical History History of cholecystectomy History of inguinal hernia repair History of loop electrical excision procedure (LEEP) History of sinus surgery Hx of dilation and curettage Family History Family History Grandparent Diabetes mellitus Cancer Asthma Father No problems noted. Mother No problems noted. Sibling No problems noted. Social History Social History Smoking status: Never smoker Second hand tobacco smoke exposure: No Alcohol intake: never Substance use: never Substance use type: does not use Living arrangements: with family Occupation/Education: occupation Additional occupation/education comments: stay at home mom Gender identity (if verbalized by the patient): Female Spiritual care concerns: No Exam Narrative: General appearance: Well-developed, well-nourished, looks pale and with Skin: Pale Head: Normocephalic, nontraumatic Eyes: Clear conjunctiva ENT: Oropharynx normal, ears normal, nose normal Neck: Supple, nontender Chest and respiratory: Airway patent, no respiratory distress, no accessory muscle use Heart: Regular rate/rhythm Abdomen: Soft, nontender, no organomegaly, quiet bowel sounds Vascular: Normal peripheral pulses, normal capillary refill. Musculoskeletal: Normal range of motion, nontender back Neurologic: Alert and oriented ?3, NAIL CUTTER is normal as tested, no gross motor deficit Course Reevaluation(s) Reevaluation #1: Patient feeling much better, denied any nausea or abdominal pain at this time, feels ready to go home. Date: 11/26/22 Time: 18:29 Vital Signs Vital signs: Vital Signs Temperature 36.9 C 11/26/22 15:12 Pulse Rate 86 11/26/22 15:12 Respiratory Rate 16 11/26/22 15:12 Blood Pressure 102/64 11/26/22 15:12 Pulse Oximetry 100 11/26/22 15:12 Temperature 36.9 C 11/26/22 15:12 Pulse Rate 65 11/26/22 18:33 Respiratory Rate 19 11/26/22 18:33 Blood Pressure 87/53 L 11/26/22 18:33 Pulse Oximetry 100 11/26/22 18:33 MDM - Naus
[2022-11-26] MEDS: diphenhydrAMINE HCl INJ 50 MG/ML VIAL 25 MG IV PUSH (18:11)
[2022-11-26 18:13] LABS: Bacteria Urine 2+ /hpf; Non Pathogenic Casts 0-2; RBC Urine 0-2 /hpf (0-2); Squamous Epithelial Cell Urine Many /hpf (Few)
[2022-11-26] MEDS: MORPHINE SULFATE (*CRX) 4 MG/ML INJ IV PUSH (18:14)
[2022-11-26] MEDS: METOCLOPRAMIDE HCL INJ 10 MG/2 ML VIAL IV PUSH (18:18)
[2022-11-26 18:41] LABS: Appearance Urine Cloudy (Clear); Bilirubin Urine Negative (Negative); Blood Urine Trace (Negative); Color Urine Yellow (Yellow); Glucose Urine UA Negative (Negative); Ketones Urine Trace mg/dL (Negative); Leukocyte Esterase Ur Trace LEU/UL (Negative); Nitrate Urine Negative (Negative); Protein Urine 1+ mg/dL (Negative); Specific Grav Ur 1.034 (1.001-1.035); Urobilinogen Urine 0.2 mg/dL (<2.0); pH Urine 5.5 (5.0-9.0)
[2022-11-26 18:55] LABS: Add Urine Microscopic? YES
== END 2022-11-26 19:02 | disposition home or self-care (01) ==
PROVIDERS: Emergency Provider Emergency Medicine; PCP Family Medicine
DX: K52.9 Noninfective gastroenteritis and colitis, unspecified (principal); K21.9 Gastro-esophageal reflux disease without esophagitis
CPT/HCPCS: 36415; 70450; 74176; 80053; 81001; 81025; 83690; 85025; 87077; 87086; 87088; 96361; 96365; 96375; 99284; J0131; J1200; J2270; J2765; J7030

== ENCOUNTER 2023-01-19 07:44 | Emergency (ER) | payer OTHER, SELFPAY ==
[2023-01-19 08:02] VITALS: BP 127/90; PULSE 89; RESP 16; TEMP 36.7; O2SAT 100
[2023-01-19 08:22] LABS: Basophils Percent Auto 0.3 % (0.2-1.2); Eosinophils Absolute Auto 0.1 K/mm3 (0-0.3); Eosinophils Percent Auto 1.2 % (0-4.4); Hematocrit 48.7 % (37.0-47.0); Hemoglobin 16.3 g/dL (12.0-15.0); Immature Granulocyte Absolute 0.02 K/mm3 (0.00-0.031); Immature Granulocyte Percent A 0.3 % (0-0.5); Lymphocytes Absolute Auto 1.97 K/mm3 (0.9-3.2); Lymphocytes Percent Auto 26.1 % (18.3-44.2); Mean Corpuscular HGB Conc 33.5 g/dl (32-36); Mean Corpuscular Hemoglobin 27.9 pg (26-34); Mean Corpuscular Volume 83.2 fl (80-100); Mean Platelet Volume 9.7 fl (7.4-10.4); Monocytes Absolute Auto 0.9 K/mm3 (0.1-0.6); Monocytes Percent Auto 12.4 % (2.6-8.5); Neutrophils Absolute Auto 4.5 K/mm3 (1.3-6.7); Neutrophils Percent Auto 59.7 % (45.5-73.1); Platelet Count Result 307 k/mm3 (150-375); Red Blood Count 5.85 M/mm3 (4.2-5.4); Red Cell Distribution Width 13.2 % (11.5-14.5); White Blood Count 7.6 K/mm3 (4.5-10.0)
[2023-01-19] MEDS: MORPHINE SULFATE (*CRX) 4 MG/ML INJ IV PUSH (08:22)
[2023-01-19] MEDS: SODIUM CHLORIDE 0.9% IV 1,000 ML 999 ML IV CONT ×2 (08:23→09:55)
[2023-01-19 08:32] LABS: Alanine Aminotransferase 16 U/L (6-35); Albumin Level 4.7 g/dL (3.5-5.1); Alkaline Phosphatase 83 U/L (38-126); Anion Gap 13 mmol/L (8-16); Aspartate Amino Transferase 18 U/L (14-36); Bilirubin,Total 0.5 mg/dL (0.2-1.3); Blood Urea Nitrogen 14 mg/dL (7-17); Carbon Dioxide 15 mmol/L (22-30); Chloride 109 mmol/L (98-107); Estimated CRCL calculation 131 ml/min; Estimated Glomerular Filt Rate > 60; Glucose 99 mg/dL (65-110); Lipase 75 U/L (23-300); Potassium 3.4 mmol/L (3.4-5.0); Sodium 137 mmol/L (137-145)
--- NOTE | 2023-01-19 09:29 | ED.NAVMDI ---
HPI - Nausea/Vomiting/Diarrhea General Chief complaint: Nausea/Vomiting/Diarrhea Stated complaint: v/d Time Seen by Provider: 01/19/23 08:00 History of Present Illness HPI Narrative: Patient is a 32-year-old female who presents ER with nausea and vomiting and diarrhea. Ongoing for 3 days. No fevers or chills or sweats. No blood in stool or emesis. Mild epigastric pain. She does endorse sick contacts at work. She has been taking Imodium with only minimal improvement. Related Data Allergies Allergy/AdvReac Type Severity Reaction Status Date / Time ondansetron [From Zofran] Allergy Unknown Rash Verified 01/19/23 08:08 Review of Systems Review of Systems: All systems reviewed & are unremarkable except as noted in HPI and below Constitutional: Constitutional: Denies chills, Denies fatigue and Denies fever(s) ENT: Denies nasal congestion Cardiovascular: Cardiovascular: Denies chest pain and Denies radiating jaw, neck or arm pain Gastrointestinal: Gastrointestinal: Reports abdominal pain, Reports diarrhea, Reports nausea and Reports vomiting Genitourinary: Genitourinary: Denies nocturia and Denies dysuria [facility] Past Medical History Medical History Adult BMI 37.0-37.9 kg/sq m Anxiety Asthma BMI 38.0-38.9,adult Body mass index (BMI) of 40.1 to 44.9 in adult Cervical dysplasia GERD (gastroesophageal reflux disease) Inguinal hernia Kidney stones Miscarriage PCOS (polycystic ovarian syndrome) tubal ligation planned UTI (urinary tract infection) Surgical History Surgical History History of cholecystectomy History of inguinal hernia repair History of loop electrical excision procedure (LEEP) History of sinus surgery Hx of dilation and curettage Family History Family History Grandparent Diabetes mellitus Cancer Asthma Father No problems noted. Mother No problems noted. Sibling No problems noted. Social History Social History Smoking status: Never smoker Second hand tobacco smoke exposure: No Alcohol intake: never Substance use: never Substance use type: does not use Living arrangements: with family Occupation/Education: occupation Additional occupation/education comments: stay at home mom Gender identity (if verbalized by the patient): Female Spiritual care concerns: No Exam Narrative: GENERAL: Well-appearing, well-nourished, and in no acute distress. HEAD: Normocephalic, atraumatic. ENT: Mucous membranes moist. CHEST: Clear to auscultation. No respiratory distress. HEART: Regular rate and rhythm. Normal peripheral pulses. ABDOMEN: Soft, nontender, nondistended. EXTREMITIES: Normal range of motion. No edema. SKIN: Warm, dry, no rash. NEURO: Alert and oriented x3. PSYCH: Normal mood and affect. Course Course Emergency Course: Patient resting comfortably. Hydrated. Informed of results. Reports some mild frontal headaches that she will receive some Toradol. Discharge home. Vital Signs Vital signs: Vital Signs Temperature 98.1 F 01/19/23 08:02 Pulse Rate 89 01/19/23 08:02 Respiratory Rate 16 01/19/23 08:02 Blood Pressure 127/90 01/19/23 08:02 Pulse Oximetry 100 01/19/23 08:02 Oxygen Delivery Room Air 01/19/23 08:02 Temperature 98.1 F 01/19/23 08:02 Pulse Rate 70 01/19/23 10:25 Respiratory Rate 16 01/19/23 10:25 Blood Pressure 123/70 01/19/23 10:25 Pulse Oximetry 98 01/19/23 10:25 Oxygen Delivery Room Air 01/19/23 08:02 MDM - Nausea/Vomiting/Diarrhea Lab Data 01/19/23 08:17 01/19/23 08:17 Labs: Lab Results 01/19/23 Range/Units 08:17 WBC 7.6 (4.5-10.0) K/mm3 RBC 5.85 H (4.2-5.4) M/mm3 Hgb 16.3 H (12.0-15.0) g/dL Hct 48.7 H (37.
[2023-01-19 10:25] VITALS: BP 123/70; PULSE 70; RESP 16; O2SAT 98
[2023-01-19] MEDS: KETOROLAC 30 MG/ML VIAL (*BKC) IV PUSH (10:27)
== END 2023-01-19 11:05 | disposition home or self-care (01) ==
PROVIDERS: Emergency Provider Emergency Medicine; PCP Family Medicine
DX: K52.9 Noninfective gastroenteritis and colitis, unspecified (principal); J45.909 Unspecified asthma, uncomplicated; K21.9 Gastro-esophageal reflux disease without esophagitis; E28.2 Polycystic ovarian syndrome; Z87.442 Personal history of urinary calculi; Z87.440 Personal history of urinary (tract) infections
CPT/HCPCS: 36415; 80053; 81025; 83690; 85025; 96361; 96374; 96375; 99284; J1885; J2270; J7030

== ENCOUNTER 2023-04-11 08:47 | Emergency (ER) | payer OTHER, SELFPAY ==
--- NOTE | ~2023-04-11 | CT_ITS ---
EXAMINATION: CT cervical spine wo con DATE: 04/11/2023 11:00 INDICATION: Back pain. TECHNIQUE: Computed tomography (CT) of the cervical spine was performed without intravenous contrast. Automated exposure control and iterative reconstruction technique were employed. The dose-length pro duct was 595.39 mGy-cm. COMPARISON: None FINDINGS: There is a 7 mm nodule in right thyroid lobe, likely not clinically significant. There is 6 degrees levocurvature of cervical spine. There is mild kyphosis of cervical spine. Vertebral body he ights and intervertebral disc heights are normal. The following disc levels are specifically discusse d: C2-C3: There is no uncovertebral joint osteoarthritis. There is no facet joint osteoarthritis. There is no neural foraminal stenosis. There is no central canal stenosis. C3-C4: There is mild left uncovertebral joint osteoarthritis. There is no facet joint osteoarthritis. There is mild left neural foraminal stenosis. There is no central canal stenosis. C4-C5 through C6-C7: There is no uncovertebral joint osteoarthritis. There is no facet joint osteoart hritis. There is no neural foraminal stenosis. There is no central canal stenosis. C7-T1: There is no uncovertebral joint osteoarthritis. There is mild right and moderate left facet christian int osteoarthritis. There is no neural foraminal stenosis. There is no central canal stenosis. IMPRESSION: 1. Mild cervical spondylosis. Reviewed, dictated and finalized at location A.
--- NOTE | ~2023-04-11 | CT_ITS ---
EXAMINATION: CT thoracic spine wo con DATE: 04/11/2023 11:00 INDICATION: Back pain. TECHNIQUE: Computed tomography (CT) of the thoracic spine was performed without intravenous contrast. Automated exposure control and iterative reconstruction technique were employed. The dose-length pro duct was 1593.09 mGy-cm. COMPARISON: Chest CT 09/22/2015 FINDINGS: There are changes of cholecystectomy. There is 3 degrees levocurvature of upper thoracic sp ine. There is mild chronic anterior wedging of T7, T8, T9, and T10 vertebral bodies. There is mildly decreased disc height at T7-T8 and T8-T9. There is multilevel mild to moderate facet joint osteoarthr itis. On the right, there is severe facet joint osteoarthritis at T8-T9. There is multilevel mild glenis ral foraminal stenosis. On the right, there is moderate neural foraminal stenosis at T8-T9 and T9-T10 . No central canal stenosis. IMPRESSION: 1. Moderate thoracic spondylosis. Reviewed, dictated and finalized at location A.
[2023-04-11 08:49] VITALS: BP 138/87; PULSE 67; RESP 16; TEMP 36.2; O2SAT 100
[2023-04-11] MEDS: diazePAM (*CRX) 5 MG TABLET PO (10:49)
[2023-04-11] MEDS: HYDROcodone/acetaminophen (*CRX) 5-325 MG TABLET 1 TAB PO (10:49)
[2023-04-11] MEDS: KETOROLAC 30 MG/ML VIAL (*BKC) IM (10:49)
--- NOTE | 2023-04-11 12:14 | ED.GENADULT ---
HPI - General Adult General Chief complaint: Back Pain/Injury Stated complaint: back pain Time Seen by Provider: 04/11/23 10:16 History of Present Illness HPI narrative: Bree Bravo is a 32 y/o female who presents with reports of twisting to reach for something today while at work and pulled the middle of her back. She reports of severe pain to her mid right lateral back, no numbness tingling / no falls/trauma. Related Data Allergies Allergy/AdvReac Type Severity Reaction Status Date / Time ondansetron [From Zofran] Allergy Unknown Rash Verified 04/11/23 08:56 Review of Systems Review of Systems: CONSTITUTIONAL: Denies fever, chills, or sweats. EYES: Denies visual changes, redness, or discharge. ENT: Denies rhinorrhea, congestion, sore throat, or otalgia. CARDIOVASCULAR: Denies chest pain, palpitations, or edema. RESPIRATORY: Denies cough or dyspnea. GASTROINTESTINAL: Denies abdominal pain, nausea, vomiting, or diarrhea. GENITOURINARY: Denies dysuria or hematuria. SKIN: Denies rash or itching. MUSCULOSKELETAL:Reports back pain, Denies joint pain, or myalgia. NEUROLOGIC: Denies headache, numbness, dizziness, or weakness. PSYCHIATRIC: Denies anxiety or depression. [facility] Past Medical History Medical History Adult BMI 37.0-37.9 kg/sq m Anxiety Asthma BMI 38.0-38.9,adult Body mass index (BMI) of 40.1 to 44.9 in adult Cervical dysplasia GERD (gastroesophageal reflux disease) Inguinal hernia Kidney stones Miscarriage PCOS (polycystic ovarian syndrome) tubal ligation planned UTI (urinary tract infection) Surgical History Surgical History History of cholecystectomy History of inguinal hernia repair History of loop electrical excision procedure (LEEP) History of sinus surgery Hx of dilation and curettage Family History Family History Grandparent Diabetes mellitus Cancer Asthma Father No problems noted. Mother No problems noted. Sibling No problems noted. Social History Social History Smoking status: Never smoker Second hand tobacco smoke exposure: No Alcohol intake: never Substance use: never Substance use type: does not use Living arrangements: with family Occupation/Education: occupation Additional occupation/education comments: stay at home mom Gender identity (if verbalized by the patient): Female Spiritual care concerns: No Exam Narrative: GENERAL: Well-appearing, well-nourished, and in no acute distress. HEAD: Normocephalic, atraumatic. EYES: PERRLA and EOMI. ENT: Nares clear, no rhinorrhea or epistaxis. Mucous membranes moist. Oropharynx without tonsillar hypertrophy exudate or other lesions. NECK: Supple. No adenopathy or masses. No carotid bruits or JVD CHEST: Clear to auscultation. No respiratory distress. No wheezes rales or rhonchi HEART: Regular rate and rhythm. No murmur heard. Normal peripheral pulses. ABDOMEN: Soft, nontender, nondistended, normal active bowel sounds. EXTREMITIES: Normal range of motion. No edema, SKIN: Warm, dry, no rash. NEURO: No focal deficits. Alert and oriented x3. PSYCH: Normal mood and affect. Course Vital Signs Vital signs: Vital Signs Temperature 36.2 C L 04/11/23 08:49 Pulse Rate 67 04/11/23 08:49 Respiratory Rate 16 04/11/23 08:49 Blood Pressure 138/87 04/11/23 08:49 Pulse Oximetry 100 04/11/23 08:49 Oxygen Delivery Room Air 04/11/23 08:49 Temperature 36.2 C L 04/11/23 08:49 Pulse Rate 67 04/11/23 08:49 Respiratory Rate 16 04/11/23 08:49 Blood Pressure 138/87 04/11/23 08:49 Pulse Oximetry 100 04/11/23 08:49 Oxygen Delivery Room Air 04/11/23 08:49 Vitals reviewed by me. Medical Decision Making MDM Narrative Medical decision mayelin
== END 2023-04-11 12:37 | disposition home or self-care (01) ==
PROVIDERS: Emergency Provider Nurse Practitioner Family; PCP Family Medicine
DX: M62.830 Muscle spasm of back (principal); M54.9 Dorsalgia, unspecified; F41.9 Anxiety disorder, unspecified; J45.909 Unspecified asthma, uncomplicated; K21.9 Gastro-esophageal reflux disease without esophagitis; Z87.442 Personal history of urinary calculi
CPT/HCPCS: 72125; 72128; 96372; 99284; A9270; J1885

== ENCOUNTER 2023-09-22 21:34 | Emergency (ER) | payer OTHER, SELFPAY ==
[2023-09-22 21:40] VITALS: BP 138/93; PULSE 90; RESP 18; TEMP 36.4; O2SAT 100
--- NOTE | 2023-09-22 22:09 | PC.NURSE ---
pt walked out of department with parents.
== END 2023-09-22 23:17 | disposition left against medical advice (07) ==
PROVIDERS: PCP Family Medicine
DX: M54.2 Cervicalgia (principal)
CPT/HCPCS: 99199

== ENCOUNTER 2024-11-21 01:55 | Emergency (ER) | payer OTHER, SELFPAY ==
--- NOTE | ~2024-11-21 | XR_ITS ---
Portable chest x-ray Comparison: 07/13/2019 Clinical History: Shortness of breath Findings: Lungs are clear, without focal consolidation or pleural effusion. Cardiomediastinal silho uette is stable. Bones and soft tissues are unremarkable. Impression: Normal chest. Reviewed, dictated and finalized at location . Impression: Normal chest.
[2024-11-21 01:58] VITALS: BP 142/116; PULSE 111; RESP 18; TEMP 36.4; O2SAT 100
--- NOTE | 2024-11-21 02:08 | ECG_ITS ---
Test Date: 2024-11-21 02:34:37 Measurements Intervals [place] Rate: 98 P: 19 LA: 128 QRS: 69 QRSD: 77 T: 30 QT: 323 QTc: 414 Interpretive Statements SINUS RHYTHM No previous ECG available for comparison Electronically Signed On 11-21-2024 11:56:59 CDT by Christ Chacon M.D.
--- NOTE | 2024-11-21 02:15 | ED_ITS ---
HPI - Asthma General Chief Complaint: Asthma Stated Complaint: asthma attack, audible wheezes Time Seen by Provider: 11/21/24 02:11 Source: patient Mode of arrival: ambulatory Limitations: no limitations History of Present Illness HPI Narrative: This is a 34 year old female that presents to the ER for asthma exacerbation. Ongoing over the last couple of days. Reports she has been using her albuterol with little relief. She tried taking some leftover prednisone she had as well. Reports a cough. Denies fevers. Related Data Allergies Allergy/AdvReac Type Severity Reaction Status Date / Time ondansetron (From Zofran) Allergy Unknown Rash Verified 01/31/24 08:32 Review of Systems 2 Review of Systems: CONSTITUTIONAL: Denies fever CARDIOVASCULAR: Reports chest pain RESPIRATORY: Reports cough and dyspnea. All systems reviewed & are unremarkable except as noted in HPI and below PMFSH Past Medical History Medical History Acute asthma exacerbation Anxiety Asthma Cervical dysplasia GERD (gastroesophageal reflux disease) Inguinal hernia Kidney stones Miscarriage (normal spontaneous vaginal delivery) PCOS (polycystic ovarian syndrome) Postoperative pain tubal ligation planned Rhomboid muscle strain Thoracic degenerative disc disease Unwanted fertility UTI (urinary tract infection) Surgical History Surgical History History of cholecystectomy History of inguinal hernia repair History of loop electrical excision procedure (LEEP) History of sinus surgery Hx of dilation and curettage Family History Family History Grandparent Diabetes mellitus Cancer Asthma Father No problems noted. Mother No problems noted. Sibling No problems noted. 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 HEAD: Normocephalic, atraumatic. EYES: EOMI. ENT: Nares clear, no rhinorrhea or epistaxis. Mucous membranes moist. Oropharynx without tonsillar hypertrophy exudate or other lesions. NECK: Supple. No adenopathy or masses. CHEST: No respiratory distress. Diffuse expiratory wheezing. No rales or rhonchi HEART: Regular rate and rhythm. No murmur heard. Normal peripheral pulses. EXTREMITIES: Normal range of motion. No edema. SKIN: Warm, dry, no rash. NEURO: No focal deficits. Alert and oriented x3. PSYCH: Normal mood and affect Course Course Emergency Course: Patient updated on workup. Reports feeling much better Vital Signs Vital signs: Vital Signs Temperature 97.6 F 11/21/24 01:58 Pulse Rate 111 H 11/21/24 01:58 Respiratory Rate 18 11/21/24 01:58 Blood Pressure 142/116 H 11/21/24 01:58 Pulse Oximetry 100 11/21/24 01:58 Oxygen Delivery Room Air 11/21/24 01:58 Temperature 97.6 F 11/21/24 01:58 Pulse Rate 96 11/21/24 03:29 Respiratory Rate 15 11/21/24 03:29 Blood Pressure 122/70 11/21/24 03:29 Pulse Oximetry 100 11/21/24 03:29 Oxygen Delivery Room Air 11/21/24 02:57 MDM - Asthma MDM Narrative Medical decision making narrative: Patient presents to the emergency department for cold symptoms ongoing over the last couple of days. Tachycardic upon arrival with diffuse wheezing, diminished lung sounds. Oxygen saturation is normal on room air. She is afebrile and nontoxic appearing. Cbc without leukocytosis. Metabolic panel without concerning findings. Patient is influenza A positive. Chest x-ray without acute cardiopulmonary abnormality. Patient updated on workup. Reports feeling much better. She will be started on Tamiflu. Continued on oral steroid. She was given warnings to return to the ER Differential Diagnosis Differential diagnosis: Likely Acute exacerbation, Acute asthmatic bronchitis and Pneumonia Lab Data Attestation: I reviewed the patient's lab results. 11/21/24 02:36 11/21/24 02:36 Labs: Lab Results 11/21/24 Range/Units 02:36 WBC 6.7 (4.5-10.0) K/mm3 RBC 5.16 (4.2-5.4) M/mm3 Hgb 14.4 (12.0-15.0) g/dL Hct 43.9 (37.0-47.0) % MCV 85.1 (80-100) fl MCH 27.9 (26-34) pg MCHC 32.8 (32-36) g/dl RDW 13.4 (11.5-14.5) % Plt Count 271 (150-375) k/mm3 MPV 9.8 (7.4-10.4) fl Immature Gran % (Auto) 0.5 (0-0.5) % Neut % (Auto) 45.4 L (45.5-73.1) % Lymph % (Auto) 43.2 (18.3-44.2) % Duval % (Auto) 9.6 H (2.6-8.5) % Eos % (Auto) 1.1 (0-4.4) % Baso % (Auto) 0.2 (0.2-1.2) % Lymph # (Auto) 2.87 (0.9-3.2) K/mm3 [place]val # (Auto) 0.6 (0.1-0.6) K/mm3 Eos # (Auto) 0.1 (0-0.3) K/mm3 Baso # (Auto) 0.0 (0.0-0.1) K/mm3 Abs Immat Gran (auto) 0.03 (0.00-0.031) K/mm3 Absolute Neuts (auto) 3.0 (1.3-6.7) K/mm3 Absolute Nucleated RBC 0.000 (0.0-0.012) K/mm3 Nucleated RBC % 0.0 (0.0-0.2) % Sodium 142 (137-145) mmol/L Potassium 3.9 (3.4-5.0) mmol/L Chloride 108 H (98-107) mmol/L Carbon Dioxide 22 (22-30) mmol/L Anion Gap 12 (4-12) mmol/L BUN 16 (7-17) mg/dL Creatinine 0.88 (0.7-1.0) mg/dL Estim Creat Clear Calc 111 ml/min Estimated GFR > 60 (59 - ) Glucose 96 (65-110) mg/dL Calcium 9.1 (8.4-10.2) mg/dL Total Bilirubin 0.3 (0.2-1.3) mg/dL AST 23 (14-36) U/L ALT 18 (6-35) U/L Alkaline Phosphatase 83 (38-126) U/L Troponin I < 0.012 (0.000-0.034) ng/mL Total Protein 8.0 (6.3-8.2) g/dL Albumin 4.0 (3.5-5.1) g/dL Influenza A (RT-PCR) Positive A (Negative) Influenza B (RT-PCR) Negative (Negative) RSV (RT-PCR) Negative (Negative) SARS-CoV-2 RNA (RT-PCR) Negative (Negative) Imaging Data My impression: Chest x-ray: No acute cardiopulmonary abnormality ECG Data EKG #1: ECG completion date: 11/21/24 EKG Interpretation: normal rate, sinus rhythm, no ST changes and normal QT Critical Care Time Critical Care Time Critical Care Time: No Discharge Plan Discharge Clinical Impression: Influenza A Asthma exacerbation Qualifiers: Asthma severity: unspecified severity Asthma persistence: persistent Qualified Code(s): J45.901 - Unspecified asthma with (acute) exacerbation Patient Disposition: Home, Self-Care Condition: Improved Instructions: Asthma (ED), Influenza (ED) Additional Instructions: Return to the emergency department for worsening symptoms, or any other concerns Remain well-hydrated, get plenty of rest. Take Tylenol or Motrin [id number] for pain as needed. Flonase for nasal congestion. Zyrtec for runny nose. Albuterol 2 puffs every 4-6 hours as needed for shortness of breath or wheezing. Continue prednisone as prescribed. Take Oseltamivir as prescribed Follow up with primary care doctor Patient Language: Citizen Of [place] Prescriptions: New oseltamivir 75 mg capsule 75 mg PO Q12H 5 Days Qty: 9 0RF prednisone 20 mg tablet 40 mg PO DAILY 4 Days Qty: 8 0RF No Action Eucrisa 2 % ointment 1 applic topical BID Qty: 60 0RF albuterol sulfate 90 mcg/actuation HFA aerosol inhaler 2 inh inhalation Q4H PRN (Reason: shortness of breath or wheezing) Qty: 8.5 0RF albuterol sulfate 1.25 mg/3 mL solution for nebulization 1.25 mg inhalation Q4-6H PRN (Reason: shortness of breath or wheezing) Qty: 75 0RF azithromycin 250 mg tablet See Rx Instructions PO .COMPLEX Qty: 6 0RF Rx Instructions: take 500 mg today (day 1), then 250 mg for 4 days (days 2-5) PO codeine-guaifenesin [Virtussin AC] 10-100 mg/5 mL liquid 5 ml PO Q6H PRN (Reason: cough) Qty: 120 0RF Follow-up/Referrals: Macho Teixeira MD [Primary Care Provider] -
[2024-11-21] MEDS: KETOROLAC 15 MG/ML VIAL (*BKC) IV PUSH (02:25)
[2024-11-21] MEDS: methylPREDNISolone SOD SUCC 125 MG VIAL IV PUSH (02:25)
[2024-11-21] MEDS: MAGNESIUM SULF 2 GM/WATER 50ML 2 GM/50 ML BAG IVPB (02:34)
[2024-11-21 02:47] LABS: Basophils Percent Auto 0.2 % (0.2-1.2); Eosinophils Absolute Auto 0.1 K/mm3 (0-0.3); Eosinophils Percent Auto 1.1 % (0-4.4); Hematocrit 43.9 % (37.0-47.0); Hemoglobin 14.4 g/dL (12.0-15.0); Immature Granulocyte Absolute 0.03 K/mm3 (0.00-0.031); Immature Granulocyte Percent A 0.5 % (0-0.5); Lymphocytes Absolute Auto 2.87 K/mm3 (0.9-3.2); Lymphocytes Percent Auto 43.2 % (18.3-44.2); Mean Corpuscular HGB Conc 32.8 g/dl (32-36); Mean Corpuscular Hemoglobin 27.9 pg (26-34); Mean Corpuscular Volume 85.1 fl (80-100); Mean Platelet Volume 9.8 fl (7.4-10.4); Monocytes Absolute Auto 0.6 K/mm3 (0.1-0.6); Monocytes Percent Auto 9.6 % (2.6-8.5); Neutrophils Percent Auto 45.4 % (45.5-73.1); Platelet Count Result 271 k/mm3 (150-375); Red Blood Count 5.16 M/mm3 (4.2-5.4); Red Cell Distribution Width 13.4 % (11.5-14.5); White Blood Count 6.7 K/mm3 (4.5-10.0)
[2024-11-21] MEDS: IPRATROPIUM BR 0.02% INH SOLN 0.5 MG/2.5 ML VIAL 1.5 MG INHALATION (02:56)
[2024-11-21 02:57] VITALS: O2SAT 98
[2024-11-21 03:00] VITALS: PULSE 83; RESP 20
[2024-11-21] MEDS: ALBUTEROL SULFATE NEB 2.5 MG/3 ML INH 15 MG INHALATION (03:00)
[2024-11-21 03:20] LABS: Influenza A QL RT-PCR Positive (Negative); Influenza B QL RT-PCR Negative (Negative); RSV RNA, RT-PCR Negative (Negative); SARS-CoV-2 RNA PCR Negative (Negative)
[2024-11-21 03:26] LABS: Alanine Aminotransferase 18 U/L (6-35); Alkaline Phosphatase 83 U/L (38-126); Anion Gap 12 mmol/L (4-12); Aspartate Amino Transferase 23 U/L (14-36); Bilirubin,Total 0.3 mg/dL (0.2-1.3); Blood Urea Nitrogen 16 mg/dL (7-17); Calcium 9.1 mg/dL (8.4-10.2); Carbon Dioxide 22 mmol/L (22-30); Chloride 108 mmol/L (98-107); Estimated CRCL calculation 111 ml/min; Estimated Glomerular Filt Rate > 60; Glucose 96 mg/dL (65-110); Potassium 3.9 mmol/L (3.4-5.0); Sodium 142 mmol/L (137-145)
[2024-11-21 03:29] VITALS: BP 122/70; PULSE 96; RESP 15; O2SAT 100
--- OUTSIDE RECORDS SUMMARY | 2024-11-21 03:37 | XMS_ITS | Clinical Summary ---
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
[2024-11-21 03:50] LABS: Troponin I < 0.012 ng/mL (0.000-0.034)
[2024-11-21 04:10] VITALS: PULSE 98; RESP 20
[2024-11-21] MEDS: OSELTAMIVIR PHOSPHATE 75 MG CAPSULE PO (04:22)
[2024-11-21 04:25] VITALS: BP 126/84; PULSE 98; RESP 15; O2SAT 100
== END 2024-11-21 04:25 | disposition home or self-care (01) ==
PROVIDERS: Emergency Medicine; Emergency Provider Physician Assistant; PCP Family Medicine
DX: J10.1 Influenza due to other identified influenza virus with other respiratory manifestations (principal); J45.901 Unspecified asthma with (acute) exacerbation; K21.9 Gastro-esophageal reflux disease without esophagitis; Z20.822 Contact with and (suspected) exposure to COVID-19
CPT/HCPCS: 36415; 71045; 80053; 84484; 85025; 87637; 93005; 94640; 96365; 96366; 96375; 99284; A9270; J1885; J2919; J3475

== ENCOUNTER 2025-03-19 08:06 | Outpatient (CLI) | payer OTHER, SELFPAY ==
--- OUTSIDE RECORDS SUMMARY | 2025-03-19 08:12 | XMS_ITS | Clinical Summary ---
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
[2025-03-19 18:34] LABS: Iron 78 ug/dL (37-170)
[2025-03-19 18:39] LABS: Hematocrit 45.1 % (37.0-47.0); Hemoglobin 14.3 g/dL (12.0-15.0); Immature Granulocyte Percent A 0.5 % (0-0.5); Lymphocytes Absolute Auto 1.73 K/mm3 (0.9-3.2); Mean Corpuscular HGB Conc 31.7 g/dl (32-36); Mean Corpuscular Hemoglobin 27.9 pg (26-34); Mean Corpuscular Volume 87.9 fl (80-100); Nucleated Red Blood Cells Absolute Auto 0.000 K/mm3 (0.0-0.012); Nucleated Red Blood Cells Perc 0.0 % (0.0-0.2); Platelet Count Result 306 k/mm3 (150-375); Red Blood Count 5.13 M/mm3 (4.2-5.4); White Blood Count 8.0 K/mm3 (4.5-10.0)
[2025-03-19 18:47] LABS: Percent Iron Saturation 23 % (20-50)
[2025-03-19 18:57] LABS: Cholesterol 180 mg/dL (0-200); HDL Direct 30 mg/dL; Triglycerides 120 mg/dL (<150)
[2025-03-19 19:07] LABS: Thyroid Stimulating Hormone Reflex 2.170 uIU/mL (0.465-4.68)
[2025-03-19 19:11] LABS: Ferritin 39.60 ng/mL (6.24-137)
[2025-03-19 20:31] LABS: Hemoglobin A1C 5.3 % (<5.7)
[2025-03-20 11:08] LABS: FSH 7.2 mIU/mL (.)
[2025-03-22 04:07] LABS: Free Testosterone (Direct) 0.3 pg/mL (0.0-4.2)
== END 2025-03-19 08:07 | disposition home or self-care (01) ==
LOC: ANHGOSHLAB 08:07
PROVIDERS: Visit Provider Obstetrics & Gynecology
DX: E28.2 Polycystic ovarian syndrome (principal); E66.01 Morbid (severe) obesity due to excess calories; Z68.41 Body mass index [BMI] 40.0-44.9, adult
CPT/HCPCS: 36415; 80061; 82728; 83001; 83036; 83525; 83527; 83540; 83550; 84270; 84402; 84443; 85025